=== PATIENT | female | born 1970 ===

== ENCOUNTER 2019-07-19 13:57 | Inpatient (IN) | payer MEDICAID, MEDICARE, OTHER ==
[2019-07-19] MEDS ORDERED: SODIUM CHLORIDE 0.9% 1000 ML IV SOLN IV ONE (14:52)
[2019-07-19] MEDS ORDERED: ACETAMINOPHEN 500 MG TAB PO ONE (14:53)
[2019-07-19] MEDS ORDERED: INSULIN REGULAR, HUMAN 100 UNITS/1 ML IV ONE (14:54)
[2019-07-19] MEDS ORDERED: PIPERACIL/TAZOBACTA 4.5/NS 100 4.5 GM/100 ML VIAL IV ONE (14:54)
--- NOTE | 2019-07-19 14:59 | Emergency Department Report ---
ED General Adult HPI - General Chief complaint: Hyperglycemia Stated complaint: AMS/BLOOD SUGAR Time Seen by Provider: 07/19/19 14:46 Source: EMS Mode of arrival: Stretcher Limitations: Physical Limitation - History of Present Illness Initial comments: Patient is a 48 years old female, morbidly obese with history of diabetes, hypertension ,pickwickian syndrome and obstructive sleep apnea on CPAP at night. Patient is bedridden. Patient brought to the emergency room via EMS for evaluation of cough, fever and elevated blood sugar. Patient has been at bedside and stated that she has been coughing for the last 3-4 days. - Related Data Allergies Allergy/AdvReac Type Severity Reaction Status Date / Time No Known Allergies Allergy Unverified 07/19/19 14:29 ED Review of Systems ROS: Stated complaint: AMS/BLOOD SUGAR Other details as noted in HPI Comment: All other systems reviewed and negative Constitutional: chills, fever Respiratory: cough, shortness of breath Gastrointestinal: denies: abdominal pain, nausea, vomiting, diarrhea, constipation, hematemesis, hematochezia Musculoskeletal: denies: back pain Neurological: denies: headache ED Past Medical Hx - Past Medical History Hx Hypertension: Yes Hx Diabetes: Yes Hx COPD: Yes - Social History Smoking Status: Never Smoker Substance Use Type: None ED Physical Exam - General Limitations: Physical Limitation General appearance: alert, in no apparent distress - Head Head exam: Present: atraumatic, normocephalic, normal inspection - Eye Eye exam: Present: normal appearance - ENT ENT exam: Present: normal exam, mucous membranes moist - Neck Neck exam: Present: normal inspection, full ROM. Absent: tenderness, meningismus - Respiratory Respiratory exam: Present: rales, rhonchi. Absent: stridor, decreased breath sounds, prolonged expiratory - Cardiovascular Cardiovascular Exam: Present: tachycardia - GI/Abdominal GI/Abdominal exam: Present: soft, normal bowel sounds. Absent: distended, tenderness, guarding, rebound, rigid - Extremities Exam Extremities exam: Present: normal inspection - Neurological Exam Neurological exam: Present: alert, oriented X3, CN II-XII intact - Skin Skin exam: Present: warm ED Course Vital Signs 07/19/19 07/19/19 07/19/19 14:20 14:25 15:01 Temperature 101.1 F H Pulse Rate 119 H 116 H Respiratory 18 21 Rate Blood Pressure 162/96 Blood Pressure 146/103 [Left] O2 Sat by Pulse 87 89 93 Oximetry 07/19/19 07/19/19 07/19/19 15:41 15:44 15:59 Temperature Pulse Rate Respiratory 18 18 20 Rate Blood Pressure Blood Pressure [Left] O2 Sat by Pulse 99 Oximetry 07/19/19 07/19/19 07/19/19 16:01 17:00 17:53 Temperature Pulse Rate 105 H Respiratory 27 H 19 18 Rate Blood Pressure 163/85 149/87 Blood Pressure [Left] O2 Sat by Pulse 94 94 Oximetry ED Medical Decision Making - Lab Data Result diagrams: 07/19/19 15:44 07/19/19 15:44 - EKG Data -: EKG Interpreted by Me - Radiology Data Radiology results: report reviewed - Medical Decision Making Patient is a 48 years old female, morbidly obese with history of diabetes, hypertension ,pickwickian syndrome and obstructive sleep apnea on CPAP at night. Patient is bedridden. Patient brought to the emergency room via EMS for evaluation of cough, fever and elevated blood sugar. Patient has been at bedside and stated that she has been coughing for the last 3-4 days. Patient's symptoms improved. Patient found to have a right lower lobe pneumonia and hyperglycemia. I discussed the patient with Dr. White, he agreed to admit the patient to medical service for further management. Critical Care Time: Yes Critical care time in (mins) excluding proc time.: 30 Critical care attestation.: If time is entered above; I have spent that time in minutes in the direct care of this critically ill patient, excluding procedure time. ED Disposition Clinical Impression: Right lower lobe pneumonia, Sepsis, Hyperglycemia due to type 2 diabetes mellitus Disposition: OP ADMIT IP TO THIS HOSP Is pt being admited?: Yes Condition: Stable Instructions: Bacterial Pneumonia (ED), Diabetes Mellitus Type 2 in Adults (ED) Referrals: PRIMARY CARE, [Primary Care Provider] - 3-5 Days
[2019-07-19] MEDS ORDERED: MORPHINE 2 MG/1 ML INJ ONE (15:32)
[2019-07-19] MEDS ORDERED: ONDANSETRON 4 MG/2 ML INJ ONE (15:33)
[2019-07-19] MEDS ORDERED: ONDANSETRON 4 MG/2 ML INJ IV ONE (15:42)
[2019-07-19] MEDS ORDERED: MORPHINE 4 MG/1 ML INJ IM ONE ×2 (15:42→17:34)
[2019-07-19 16:02] LABS: Basophils # (Auto) 0.1 K/mm3 (0.0-0.1); Basophils % (Auto) 0.5 % (0.0-1.8); Eosinophils # (Auto) 0.3 K/mm3 (0.0-0.4); Eosinophils % (Auto) 2.3 % (0.0-4.3); Hematocrit 36.3 % (30.3-42.9); Hemoglobin 11.8 gm/dl (10.1-14.3); Lymphocytes # (Auto) 0.5 K/mm3 (1.2-5.4); Lymphocytes % (Auto) 4.6 % (13.4-35.0); Mean Corpuscular HGB Conc 32 % (30-34); Mean Corpuscular Volume 85 fl (79-97); Monocytes # (Auto) 0.5 K/mm3 (0.0-0.8); Platelet Count 242 K/mm3 (140-440); Red Blood Count 4.27 M/mm3 (3.65-5.03); Red Cell Distribution Width 17.6 % (13.2-15.2)
[2019-07-19 16:25] LABS: Alanine Aminotransferase 11 units/L (7-56); Albumin 3.9 g/dL (3.9-5); BUN/Creatinine Ratio 19; Blood Urea Nitrogen 17 mg/dL (7-17); Calcium 8.1 mg/dL (8.4-10.2); Hemolysis Index 1
--- NOTE | 2019-07-19 16:29 | XRay Report ---
CHEST 1 VIEW INDICATION: cough, fever. COMPARISON: None. FINDINGS: Support devices: None. Heart: Enlarged. Pulmonary vasculature: Normal. Lungs/Pleura: Medial right basal lung opacification. No pleural effusion. Additional findings: None. IMPRESSION: Cardiomegaly but no CHF. Suspect right basal pneumonia. Signer Name: Rick Zepeda MD Signed: 07/19/2019 4:25 PM Workstation Name: [id number]
[2019-07-19] MEDS ORDERED: FUROSEMIDE 100 MG/10 ML INJ IV ONE (17:48)
[2019-07-19] MEDS ORDERED: NITROGLYCERIN 0.4 MG TAB SUBL SL ONE ×2 (17:48→17:53)
--- NOTE | 2019-07-19 19:35 | History and Physical Report ---
History of Present Illness Date of examination: 07/19/19 Date of admission: 07/19/2019 Chief complaint: Fever and diaphoresis 1 day History of present illness: 48-year-old female morbidly obese with history of diabetes and hypertension and obstructive sleep apnea on CPAP at night comes in via EMS for cough and fever and high blood glucose levels. Patient has been coughing for the last 3-4 days. Patient also has been having low-grade fever and frequent diaphoretic episodes. No recent travel. Patient is morbidly obese. No exacerbating or relieving factors. Blood glucose level was 572 when done by the EMS. Past Medical History Hypertension: Yes Diabetes: Yes Pickwickian syndrome Surgical history N/a Social History Smoking Status: Never Smoker Family history Htn Review of Systems ROS: Stated complaint: AMS/BLOOD SUGAR Other details as noted in HPI Comment: All other systems reviewed and negative Constitutional: chills, fever Respiratory: cough, shortness of breath Gastrointestinal: denies: abdominal pain, nausea, vomiting, diarrhea, constipation, hematemesis, hematochezia Musculoskeletal: denies: back pain Neurological: denies: headache 14 point review of systems done and otherwise negative. Medications and Allergies Allergies Allergy/AdvReac Type Severity Reaction Status Date / Time No Known Allergies Allergy Unverified 07/19/19 14:29 Exam - Constitutional Vitals: Temp Pulse Resp BP Pulse Ox 101.1 F H 105 H 18 149/87 94 07/19/19 14:25 07/19/19 16:01 07/19/19 17:53 07/19/19 17:00 07/19/19 17:00 General appearance: Present: no acute distress, well-nourished - EENT Eyes: Present: PERRL ENT: hearing intact, clear oral mucosa - Neck Neck: Present: supple, normal ROM - Respiratory Respiratory effort: normal Respiratory: bilateral: CTA - Cardiovascular Heart rate: 78 Rhythm: regular Heart Sounds: Present: S1 & S2. Absent: rub, click - Extremities Extremities: no ischemia, pulses intact, pulses symmetrical, No edema Peripheral Pulses: within normal limits - Abdominal General gastrointestinal: Present: soft, non-tender, non-distended, normal bowel sounds Female genitourinary: Present: normal - Rectal Rectal Exam: deferred - Integumentary Integumentary: Present: clear, warm, dry - Musculoskeletal Musculoskeletal: gait normal, strength equal bilaterally - Psychiatric Psychiatric: appropriate mood/affect, intact judgment & insight - Neurologic Neurologic: CNII-XII intact, moves all extremities - Allied Health Allied health notes reviewed: nursing, case management Results - Labs CBC & Chem 7: 07/19/19 15:44 07/19/19 15:44 Labs: Laboratory Last Values WBC 10.7 K/mm3 (4.5-11.0) 07/19/19 15:44 RBC 4.27 M/mm3 (3.65-5.03) 07/19/19 15:44 Hgb 11.8 gm/dl (10.1-14.3) 07/19/19 15:44 Hct 36.3 % (30.3-42.9) 07/19/19 15:44 MCV 85 fl (79-97) 07/19/19 15:44 MCH 28 pg (28-32) 07/19/19 15:44 MCHC 32 % (30-34) 07/19/19 15:44 RDW 17.6 % (13.2-15.2) H 07/19/19 15:44 Plt Count 242 K/mm3 (140-440) 07/19/19 15:44 Lymph % (Auto) 4.6 % (13.4-35.0) L 07/19/19 15:44 [place] % (Auto) 5.0 % (0.0-7.3) 07/19/19 15:44 Eos % (Auto) 2.3 % (0.0-4.3) 07/19/19 15:44 Baso % (Auto) 0.5 % (0.0-1.8) 07/19/19 15:44 Lymph # 0.5 K/mm3 (1.2-5.4) L 07/19/19 15:44 [place] # 0.5 K/mm3 (0.0-0.8) 07/19/19 15:44 Eos # 0.3 K/mm3 (0.0-0.4) 07/19/19 15:44 Baso # 0.1 K/mm3 (0.0-0.1) 07/19/19 15:44 Seg Neutrophils % 87.6 % (40.0-70.0) H 07/19/19 15:44 Seg Neutrophils # 9.4 K/mm3 (1.8-7.7) H 07/19/19 15:44 Sodium 137 mmol/L (137-145) 07/19/19 15:44 Potassium 4.5 mmol/L (3.6-5.0) 07/19/19 15:44 Chloride 92.2 mmol/L (98-107) L 07/19/19 15:44 Carbon Dioxide 27 mmol/L (22-30) 07/19/19 15:44 Anion Gap 22 mmol/L 07/19/19 15:44 BUN 17 mg/dL (7-17) 07/19/19 15:44 Creatinine 0.9 mg/dL (0.7-1.2) 07/19/19 15:44 Estimated GFR > 60 ml/min 07/19/19 15:44 BUN/Creatinine Ratio 19 % 07/19/19 15:44 Glucose 469 mg/dL (65-100) H 07/19/19 15:44 POC Glucose 361 (70-105) H 07/19/19 18:25 Lactic Acid 2.70 mmol/L (0.7-2.0) H* 07/19/19 16:30 Calcium 8.1 mg/dL (8.4-10.2) L 07/19/19 15:44 Total Bilirubin 0.20 mg/dL (0.1-1.2) 07/19/19 15:44 AST 10 units/L (5-40) 07/19/19 15:44 ALT 11 units/L (7-56) 07/19/19 15:44 Alkaline Phosphatase 95 units/L (35-129) 07/19/19 15:44 Total Protein 8.1 g/dL (6.3-8.2) 07/19/19 15:44 Albumin 3.9 g/dL (3.9-5) 07/19/19 15:44 Albumin/Globulin Ratio 0.9 % 07/19/19 15:44 Short CBC 07/19/19 Range/Units 15:44 WBC 10.7 (4.5-11.0) K/mm3 Hgb 11.8 (10.1-14.3) gm/dl Hct 36.3 (30.3-42.9) % Plt Count 242 (140-440) K/mm3 BMP 07/19/19 15:44 Sodium 137 Potassium 4.5 Chloride 92.2 L Carbon Dioxide 27 BUN 17 Creatinine 0.9 Glucose 469 H Calcium 8.1 L Liver Function 07/19/19 Range/Units 15:44 Total Bilirubin 0.20 (0.1-1.2) mg/dL AST 10 (5-40) units/L ALT 11 (7-56) units/L Alkaline Phosphatase 95 (35-129) units/L Albumin 3.9 (3.9-5) g/dL Short CBC 07/19/19 Range/Units 15:44 WBC 10.7 (4.5-11.0) K/mm3 Hgb 11.8 (10.1-14.3) gm/dl Hct 36.3 (30.3-42.9) % Plt Count 242 (140-440) K/mm3 [facility] 07/19/19 15:44 Sodium 137 Potassium 4.5 Chloride 92.2 L Carbon Dioxide 27 BUN 17 Creatinine 0.9 Glucose 469 H Calcium 8.1 L Liver Function 07/19/19 Range/Units 15:44 Total Bilirubin 0.20 (0.1-1.2) mg/dL AST 10 (5-40) units/L ALT 11 (7-56) units/L Alkaline Phosphatase 95 (35-129) units/L Albumin 3.9 (3.9-5) g/dL Short CBC 07/19/19 Range/Units 15:44 WBC 10.7 (4.5-11.0) K/mm3 Hgb 11.8 (10.1-14.3) gm/dl Hct 36.3 (30.3-42.9) % Plt Count 242 (140-440) K/mm3 [facility] 07/19/19 15:44 Sodium 137 Potassium 4.5 Chloride 92.2 L Carbon Dioxide 27 BUN 17 Creatinine 0.9 Glucose 469 H Calcium 8.1 L Liver Function 07/19/19 Range/Units 15:44 Total Bilirubin 0.20 (0.1-1.2) mg/dL AST 10 (5-40) units/L ALT 11 (7-56) units/L Alkaline Phosphatase 95 (35-129) units/L Albumin 3.9 (3.9-5) g/dL Short CBC 07/19/19 Range/Units 15:44 WBC 10.7 (4.5-11.0) K/mm3 Hgb 11.8 (10.1-14.3) gm/dl Hct 36.3 (30.3-42.9) % Plt Count 242 (140-440) K/mm3 BMP 07/19/19 15:44 Sodium 137 Potassium 4.5 Chloride 92.2 L Carbon Dioxide 27 BUN 17 Creatinine 0.9 Glucose 469 H Calcium 8.1 L Liver Function 07/19/19 Range/Units 15:44 Total Bilirubin 0.20 (0.1-1.2) mg/dL AST 10 (5-40) units/L ALT 11 (7-56) units/L Alkaline Phosphatase 95 (35-129) units/L Albumin 3.9 (3.9-5) g/dL - Imaging and Cardiology Chest x-ray: report reviewed Imaging and Cardiology: cxr IMPRESSION: Cardiomegaly but no CHF. Suspect right basal pneumonia and Assessment and Plan Advance Directives: Yes (Full code) VTE prophylaxis?: Chemical Plan of care discussed with patient/family: Yes - Patient Problems (1) Right lower lobe pneumonia Current Visit: Yes Status: Acute Plan to address problem: Patient initiated on IV ceftriaxone and IV azithromycin IV fluids (2) SIRS (systemic inflammatory response syndrome) Current Visit: Yes Status: Acute Plan to address problem: Patient has fever and elevated lactic acid Consistent with systemic inflammatory response syndrome Continue IV antibiotics (3) Acute respiratory failure with hypoxia Current Visit: Yes Status: Acute Plan to address problem: Secondary to pickwickian syndrome Nasal cannula oxygen as necessary (4) Pickwickian syndrome Current Visit: Yes Status: Chronic Plan to address problem: Chronic hypoventilation CPAP/BiPAP at nighttime and daytime if necessary (5) Uncontrolled diabetes mellitus Current Visit: Yes Status: Chronic Qualifiers: Diabetes mellitus type: type 2 Plan to address problem: Patient is a sliding scale at home which is inadequate Check hemoglobin A1c Lantus 30 units daily at bedtime initiated Accu-Cheks every 4 hours and moderate dose sliding scale protocol. (6) Hypertension Current Visit: Yes Status: Chronic Qualifiers: Hypertension type: essential hypertension Qualified Code(s): I10 - Essential (primary) hypertension Plan to address problem: Continue losartan (7) DVT prophylaxis Current Visit: Yes Status: Acute Plan to address problem: Patient on Lovenox and GI prophylaxis
[2019-07-19] MEDS ORDERED: ACETAMINOPHEN 325 MG TAB PO PRN (20:09)
[2019-07-19] MEDS ORDERED: ONDANSETRON 4 MG/2 ML INJ IV PRN (20:09)
[2019-07-19] MEDS ORDERED: oxyCODONE /ACETAMINOPHEN 5-325MG TAB PO PRN (20:10)
[2019-07-19] MEDS ORDERED: ALBUTEROL 2.5 MG/3 ML NEBU IH PRN (20:30)
[2019-07-19] MEDS ORDERED: SODIUM CHLORIDE 0.9% 1000 ML 1,000 ML IV SCH (21:00)
[2019-07-19] MEDS: ENOXAPARIN 40 MG/0.4 ML INJ SUB-Q SCH (22:52)
[2019-07-19] MEDS: LOSARTAN 50 MG TAB PO SCH (22:53)
[2019-07-19] MEDS: AZITHROMYCIN 500 MG in SODIUM CHLORIDE 0.9% 250ML 250 ML IV SCH (22:54)
[2019-07-19] MEDS: HYDROmorphone 1 MG/1 ML INJ IV PRN (22:54)
[2019-07-19] MEDS: INSULIN GLARGINE 100 UNITS/ML SUB-Q SCH (23:31)
[2019-07-19] MEDS: INSULIN LISPRO 100 UNIT/ML SUB-Q SCH (23:32)
[2019-07-20] MEDS: cefTRIAXone/NS 2 GM/100 ML 2 GM/100 ML BAG IV SCH ×2 (00:01→21:52)
[2019-07-20] MEDS: INSULIN LISPRO 100 UNIT/ML SUB-Q SCH ×6 (03:38→21:52)
[2019-07-20] MEDS: HYDROmorphone 1 MG/1 ML INJ IV PRN ×4 (03:39→22:29)
[2019-07-20 06:48] LABS: Basophils % (Auto) 0.5 % (0.0-1.8); Eosinophils # (Auto) 0.4 K/mm3 (0.0-0.4); Eosinophils % (Auto) 5.3 % (0.0-4.3); Hematocrit 32.8 % (30.3-42.9); Hemoglobin 10.4 gm/dl (10.1-14.3); Lymphocytes # (Auto) 0.9 K/mm3 (1.2-5.4); Lymphocytes % (Auto) 13.1 % (13.4-35.0); Mean Corpuscular HGB Conc 32 % (30-34); Mean Corpuscular Volume 86 fl (79-97); Monocytes # (Auto) 0.6 K/mm3 (0.0-0.8); Platelet Count 228 K/mm3 (140-440); Red Cell Distribution Width 17.2 % (13.2-15.2)
--- NOTE | 2019-07-20 07:05 | Progress Note ---
Assessment and Plan Assessment and plan: Patient is a 48 yo woman with a history of morbidly obese as BMI at this time is 60.8, type 2 DM, hypertension and obstructive sleep apnea on CPAP at night who presents to [facility] ED with sob, cough and fevers. Blood glucose level was 572 when done by the EMS. pCXR showed Cardiomegaly and Right basilar pneumonia. Patient was hypoxic with Pulse ox of 87% on ER vital set, hence admission. She was also found to have excoriation, yeast type infection in perineal with stage 2 sacral pressure ulcers (see admission photos). Acute hypoxic respiratory failure requring O2 supplementation: treat the pneumonia Sepsis due to Pneumonia, poa: follow cultures, treat with abx RLL CAP pneumonia: treat with abx Morbid Obesity, bmi 60.8: monitor caloric intake Uncontrolled DM type 2 with hyperglycemia: treat with ssi, accuchecks, ada diet Sacral pressure ulcers stage 2: wound care consult Perineal Candiadiasis: keep dry and treat with local antifungal Suspected Pickwickian syndrome/ Chronic hypoventilation: CPAP/BiPAP at nighttime and daytime if necessary Hypertension: Continue losartan DVT prophylaxis: Patient on Lovenox and GI prophylaxis full code Hospitalist Physical - Constitutional Vitals: Temp Pulse Resp BP Pulse Ox 98.0 F 88 18 153/84 92 07/20/19 03:52 07/20/19 04:19 07/20/19 03:52 07/20/19 03:52 07/20/19 03:52 General appearance: Present: no acute distress, well-nourished Results - Labs CBC & Chem 7: 07/20/19 05:33 07/19/19 15:44 Labs: Laboratory Last Values WBC 7.0 K/mm3 (4.5-11.0) 07/20/19 05:33 RBC 3.80 M/mm3 (3.65-5.03) 07/20/19 05:33 Hgb 10.4 gm/dl (10.1-14.3) 07/20/19 05:33 Hct 32.8 % (30.3-42.9) 07/20/19 05:33 MCV 86 fl (79-97) 07/20/19 05:33 MCH 27 pg (28-32) L 07/20/19 05:33 MCHC 32 % (30-34) 07/20/19 05:33 RDW 17.2 % (13.2-15.2) H 07/20/19 05:33 Plt Count 228 K/mm3 (140-440) 07/20/19 05:33 Lymph % (Auto) 13.1 % (13.4-35.0) L 07/20/19 05:33 [place] % (Auto) 9.0 % (0.0-7.3) H 07/20/19 05:33 Eos % (Auto) 5.3 % (0.0-4.3) H 07/20/19 05:33 Baso % (Auto) 0.5 % (0.0-1.8) 07/20/19 05:33 Lymph # 0.9 K/mm3 (1.2-5.4) L 07/20/19 05:33 [place] # 0.6 K/mm3 (0.0-0.8) 07/20/19 05:33 Eos # 0.4 K/mm3 (0.0-0.4) 07/20/19 05:33 Baso # 0.0 K/mm3 (0.0-0.1) 07/20/19 05:33 Seg Neutrophils % 72.1 % (40.0-70.0) H 07/20/19 05:33 Seg Neutrophils # 5.0 K/mm3 (1.8-7.7) 07/20/19 05:33 Sodium 137 mmol/L (137-145) 07/19/19 15:44 Potassium 4.5 mmol/L (3.6-5.0) 07/19/19 15:44 Chloride 92.2 mmol/L (98-107) L 07/19/19 15:44 Carbon Dioxide 27 mmol/L (22-30) 07/19/19 15:44 Anion Gap 22 mmol/L 07/19/19 15:44 BUN 17 mg/dL (7-17) 07/19/19 15:44 Creatinine 0.9 mg/dL (0.7-1.2) 07/19/19 15:44 Estimated GFR > 60 ml/min 07/19/19 15:44 BUN/Creatinine Ratio 19 % 07/19/19 15:44 Glucose 469 mg/dL (65-100) H 07/19/19 15:44 POC Glucose 245 (70-105) H 07/20/19 06:07 Hemoglobin A1c 12.1 % (4-6) H 07/19/19 15:44 Lactic Acid 1.90 mmol/L (0.7-2.0) 07/19/19 23:32 Calcium 8.1 mg/dL (8.4-10.2) L 07/19/19 15:44 Total Bilirubin 0.20 mg/dL (0.1-1.2) 07/19/19 15:44 AST 10 units/L (5-40) 07/19/19 15:44 ALT 11 units/L (7-56) 07/19/19 15:44 Alkaline Phosphatase 95 units/L (35-129) 07/19/19 15:44 Total Protein 8.1 g/dL (6.3-8.2) 07/19/19 15:44 Albumin 3.9 g/dL (3.9-5) 07/19/19 15:44 Albumin/Globulin Ratio 0.9 % 07/19/19 15:44 Active Medications - Current Medications Current Medications: Generic Name Dose Route Start Last Admin Trade Name Freq PRN Reason Stop Dose Admin Acetaminophen 650 mg 07/19/19 20:09 Tylenol PO Q4H PRN Pain MILD(1-3)/Fever >100.5/LOPEZ Albuterol 2.5 mg 07/19/19 20:30 Proventil IH Q4HRT PRN Shortness Of Breath Albuterol/Ipratropium 1 ampul 07/20/19 08:00 Duoneb *Not For Prn Use* IH QIDRT MARGARITA Enoxaparin Sodium 40 mg 07/19/19 22:00 07/19/19 22:52 Enoxaparin SUB-Q 40 mg QDAY@2200 MARGARITA Administration Hydromorphone HCl 0.5 mg 07/19/19 20:10 07/20/19 03:39 Dilaudid IV 0.5 mg Q3H PRN Administration Pain , Severe (7-10) Sodium Chloride 1,000 mls @ 75 mls/hr 07/19/19 21:00 07/19/19 22:52 Nacl 0.9% 1000 Ml IV 07/20/19 11:00 75 mls/hr DIRECT MARGARITA Administration Azithromycin 500 mg/ Sodium 250 mls @ 250 mls/hr 07/19/19 21:00 07/19/19 22:54 Chloride IV 250 mls/hr Q24H MARGARITA Administration Protocol Ceftriaxone Sodium 2 gm in 100 mls @ 200 mls/hr 07/19/19 22:00 07/20/19 00:01 Rocephin/Ns 2 Gm/100 Ml IV 200 mls/hr Q24H MARGARITA Administration Protocol Insulin Glargine 30 units 07/19/19 22:00 07/19/19 23:31 Lantus SUB-Q 30 units QHS MARGARITA Administration Insulin Human Lispro 0 unit 07/19/19 22:00 07/20/19 06:37 Humalog SUB-Q 3 unit Q4HR MARGARITA Administration Protocol Losartan Potassium 50 mg 07/19/19 22:00 07/19/19 22:53 Cozaar PO 50 mg QDAY MARGARITA Administration Ondansetron HCl 4 mg 07/19/19 20:09 Zofran IV Q8H PRN Nausea And Vomiting Oxycodone/Acetaminophen 1 tab 07/19/19 20:10 Percocet 5/325 PO Q6H PRN Pain, Moderate (4-6) Sodium Chloride 10 ml 07/19/19 22:00 07/19/19 22:55 Sodium Chloride Flush Syringe 10 Ml IV 10 ml BID MARGARITA Administration Sodium Chloride 10 ml 07/19/19 20:09 Sodium Chloride Flush Syringe 10 Ml IV PRN PRN LINE FLUSH
[2019-07-20 07:11] LABS: Alanine Aminotransferase 10 units/L (7-56); Albumin 3.5 g/dL (3.9-5); BUN/Creatinine Ratio 18; Blood Urea Nitrogen 14 mg/dL (7-17); Calcium 7.4 mg/dL (8.4-10.2); Hemolysis Index 0
[2019-07-20] MEDS ORDERED: IPRATROPIUM/ALBUTEROL SULFATE 3 ML AMPUL.NEB IH SCH (08:00)
[2019-07-20] MEDS: LOSARTAN 50 MG TAB PO SCH (09:22)
[2019-07-20] MEDS ORDERED: ALBUTEROL 2.5 MG/3 ML NEBU IH PRN (09:46)
[2019-07-20] MEDS: IPRATROPIUM/ALBUTEROL SULFATE 3 ML AMPUL.NEB IH SCH ×2 (13:13→20:07)
--- NOTE | 2019-07-20 14:08 | Event Note ---
Date: 07/20/19 Went to go evaluate patient. She refuses to wear the CPAP even though during my attempt at interview she is dosing off to sleep. She cannot tell me who diagnosed her with SCARLET, or how long she has been on CPAP. She cannot tell me why she is suppose to wear CPAP nor why she does not wear it everyday. She does state that her Courseload is [employer]. Called the office and she was seen by Terrell on 07/02 with diagnosis of chronic respiratory failure and SCARLET. She did not bring in her sleep card with her. She has no white count but was febrile on admission. Suggest the following. 1. Continuous CPAP vs Bipap therapy. Will speak with RT now 2. Send BNP 3. Needs echo to evaluate for pulmonary hypertension 4. Supplemental O2 5. Follow up blood cultures and ok with current abx. If possible, needs UA C&S
[2019-07-20] MEDS: guaiFENesin/CODEINE 100-10MG ORAL LIQD 5 ML PO PRN (18:23)
[2019-07-20] MEDS: BUDESONIDE 0.5 MG/2 ML NEBU IH SCH (20:07)
[2019-07-20] MEDS: ARFORMOTEROL 15 MCG/2 ML NEBU IH SCH (20:07)
[2019-07-20] MEDS: AZITHROMYCIN 500 MG in SODIUM CHLORIDE 0.9% 250ML 250 ML IV SCH (21:42)
[2019-07-20] MEDS: BENZONATATE 100 MG CAP PO SCH (21:43)
[2019-07-20] MEDS: ENOXAPARIN 40 MG/0.4 ML INJ SUB-Q SCH (21:44)
[2019-07-20] MEDS: INSULIN GLARGINE 100 UNITS/ML SUB-Q SCH (21:44)
[2019-07-21] MEDS: IPRATROPIUM/ALBUTEROL SULFATE 3 ML AMPUL.NEB IH SCH ×4 (02:00→19:33)
[2019-07-21] MEDS: INSULIN LISPRO 100 UNIT/ML SUB-Q SCH ×6 (02:55→22:28)
[2019-07-21] MEDS: HYDROmorphone 1 MG/1 ML INJ IV PRN ×5 (04:11→22:28)
[2019-07-21] MEDS: BENZONATATE 100 MG CAP PO SCH ×3 (06:37→21:11)
[2019-07-21] MEDS: LOSARTAN 50 MG TAB PO SCH (09:08)
--- NOTE | 2019-07-21 09:54 | Progress Note ---
Assessment and Plan 48 y/o morbidly obese female with SCARLET, OHS and noncompliance with therapy and chronic respiratory failure. Subjective Date of service: 07/21/19 Interval history: patient refused PPV last night x3. Well documented by RT. BNP elevated at 500. Objective Vital Signs - 12hr 07/20/19 07/21/19 07/21/19 23:51 02:00 04:00 Temperature 98.8 F Pulse Rate 84 81 Pulse Rate [ 85 Bilateral Throughout] Respiratory 22 Rate Respiratory 20 Rate [Bilateral Throughout] Blood Pressure 149/74 O2 Sat by Pulse 90 Oximetry 07/21/19 07/21/19 04:45 09:08 Temperature 97.4 F L Pulse Rate 82 82 Pulse Rate [ Bilateral Throughout] Respiratory 20 Rate Respiratory Rate [Bilateral Throughout] Blood Pressure 149/93 137/84 O2 Sat by Pulse 93 Oximetry CBC and BMP: 07/20/19 05:33 07/20/19 05:33 Abnormal lab findings: Abnormal Labs 07/19/19 07/19/19 07/19/19 15:44 15:44 15:44 MCH RDW 17.6 H Lymph % (Auto) 4.6 L [place] % (Auto) Eos % (Auto) Lymph # 0.5 L Seg Neutrophils % 87.6 H Seg Neutrophils # 9.4 H Chloride 92.2 L Carbon Dioxide Glucose 469 H POC Glucose Hemoglobin A1c Lactic Acid 2.70 H* Calcium 8.1 L NT-Pro-B Natriuret Pep Albumin 07/19/19 07/19/19 07/19/19 15:44 16:30 18:25 MCH RDW Lymph % (Auto) [place] % (Auto) Eos % (Auto) Lymph # Seg Neutrophils % Seg Neutrophils # Chloride Carbon Dioxide Glucose POC Glucose 361 H Hemoglobin A1c 12.1 H Lactic Acid 2.70 H* Calcium NT-Pro-B Natriuret Pep Albumin 07/19/19 07/20/19 07/20/19 23:15 03:41 05:33 MCH 27 L RDW 17.2 H Lymph % (Auto) 13.1 L [place] % (Auto) 9.0 H Eos % (Auto) 5.3 H Lymph # 0.9 L Seg Neutrophils % 72.1 H Seg Neutrophils # Chloride Carbon Dioxide Glucose POC Glucose 386 H 254 H Hemoglobin A1c Lactic Acid Calcium NT-Pro-B Natriuret Pep Albumin 10/07/20/19 07/20/19 05:33 06:07 11:19 MCH RDW Lymph % (Auto) [place] % (Auto) Eos % (Auto) Lymph # Seg Neutrophils % Seg Neutrophils # Chloride Carbon Dioxide 31 H Glucose 257 H POC Glucose 245 H 302 H Hemoglobin A1c Lactic Acid Calcium 7.4 L NT-Pro-B Natriuret Pep Albumin 3.5 L 07/20/19 07/20/19 07/20/19 14:17 15:45 17:47 MCH RDW Lymph % (Auto) [place] % (Auto) Eos % (Auto) Lymph # Seg Neutrophils % Seg Neutrophils # Chloride Carbon Dioxide Glucose POC Glucose 287 H 341 H Hemoglobin A1c Lactic Acid Calcium NT-Pro-B Natriuret Pep 499.5 H Albumin 07/20/19 07/21/19 07/21/19 21:05 02:59 06:39 MCH RDW Lymph % (Auto) [place] % (Auto) Eos % (Auto) Lymph # Seg Neutrophils % Seg Neutrophils # Chloride Carbon Dioxide Glucose POC Glucose 347 H 231 H 198 H Hemoglobin A1c Lactic Acid Calcium NT-Pro-B Natriuret Pep Albumin
[2019-07-21] MEDS: ARFORMOTEROL 15 MCG/2 ML NEBU IH SCH ×2 (10:32→19:33)
[2019-07-21] MEDS: BUDESONIDE 0.5 MG/2 ML NEBU IH SCH ×2 (10:32→19:33)
--- NOTE | 2019-07-21 14:59 | Progress Note ---
Assessment and Plan Assessment and plan: Patient is a 48 yo woman with a history of morbidly obese as BMI at this time is 60.8, type 2 DM, hypertension and obstructive sleep apnea on CPAP at night who presents to [facility] ED with sob, cough and fevers. Blood glucose level was 572 when done by the EMS. pCXR showed Cardiomegaly and Right basilar pneumonia. Patient was hypoxic with Pulse ox of 87% on ER vital set, hence admission. She was also found to have excoriation, yeast type infection in perineal with stage 2 sacral pressure ulcers (see admission photos). Acute hypoxic hypercapneic respiratory failure requring O2 supplementation: treat the pneumonia Sepsis due to Pneumonia, poa: follow cultures, treat with abx RLL CAP pneumonia: treat with abx Morbid Obesity, bmi 60.8: monitor caloric intake Uncontrolled DM type 2 with hyperglycemia: treat with ssi, accuchecks, ada diet Sacral pressure ulcers stage 2: wound care consult Perineal Candiadiasis: keep dry and treat with local antifungal Suspected Pickwickian syndrome/ Chronic hypoventilation: CPAP/BiPAP at nighttime and daytime if necessary Hypertension: Continue losartan DVT prophylaxis: Patient on Lovenox and GI prophylaxis full code History Interval history: Follow up COPD. Non compliant with wearing bipap at night, still hypercapneic, unable to treat effectively if she will not wear bipap, she will tonight Hospitalist Physical - Physical exam Narrative exam: Gen: morbid obese bmi 60.7 NAD, Awake, Alert, Orientated HEENT: NCAT, EOMI, PERRL, OP Clear Neck: supple, no adenopathy, no thyromegaly, no JVD CVS/Heart: RRR, normal S1S2, pulses present bilaterally Chest/Lungs: diminished with rhonchi, Symmetrical chest expansion, good air entry bilaterally GI/Abdomen: soft, NTND, good bowel sounds, no guarding or rebound /Bladder: no suprapubic tenderness, no CVA or paraspinal tenderness Extermity/Skin: obvious rashes, inner thigh, groin, buttock MSK: FROM x 4 Neuro: CN 2-12 grossly intact, no new focal deficits Psych: calm - Constitutional Vitals: Temp Pulse Resp BP Pulse Ox 97.4 F L 82 18 137/84 93 07/21/19 04:45 07/21/19 13:51 07/21/19 13:51 07/21/19 09:08 07/21/19 10:00 General appearance: Present: no acute distress, well-nourished Results - Labs CBC & Chem 7: 07/20/19 05:33 07/20/19 05:33 Labs: Laboratory Last Values WBC 7.0 K/mm3 (4.5-11.0) 07/20/19 05:33 RBC 3.80 M/mm3 (3.65-5.03) 07/20/19 05:33 Hgb 10.4 gm/dl (10.1-14.3) 07/20/19 05:33 Hct 32.8 % (30.3-42.9) 07/20/19 05:33 MCV 86 fl (79-97) 07/20/19 05:33 MCH 27 pg (28-32) L 07/20/19 05:33 MCHC 32 % (30-34) 07/20/19 05:33 RDW 17.2 % (13.2-15.2) H 07/20/19 05:33 Plt Count 228 K/mm3 (140-440) 07/20/19 05:33 Lymph % (Auto) 13.1 % (13.4-35.0) L 07/20/19 05:33 [place] % (Auto) 9.0 % (0.0-7.3) H 07/20/19 05:33 Eos % (Auto) 5.3 % (0.0-4.3) H 07/20/19 05:33 Baso % (Auto) 0.5 % (0.0-1.8) 07/20/19 05:33 Lymph # 0.9 K/mm3 (1.2-5.4) L 07/20/19 05:33 [place] # 0.6 K/mm3 (0.0-0.8) 07/20/19 05:33 Eos # 0.4 K/mm3 (0.0-0.4) 07/20/19 05:33 Baso # 0.0 K/mm3 (0.0-0.1) 07/20/19 05:33 Seg Neutrophils % 72.1 % (40.0-70.0) H 07/20/19 05:33 Seg Neutrophils # 5.0 K/mm3 (1.8-7.7) 07/20/19 05:33 Sodium 141 mmol/L (137-145) 07/20/19 05:33 Potassium 4.1 mmol/L (3.6-5.0) 07/20/19 05:33 Chloride 99.2 mmol/L (98-107) 07/20/19 05:33 Carbon Dioxide 31 mmol/L (22-30) H 07/20/19 05:33 Anion Gap 15 mmol/L 07/20/19 05:33 BUN 14 mg/dL (7-17) 07/20/19 05:33 Creatinine 0.8 mg/dL (0.7-1.2) 07/20/19 05:33 Estimated GFR > 60 ml/min 07/20/19 05:33 BUN/Creatinine Ratio 18 % 07/20/19 05:33 Glucose 257 mg/dL (65-100) H 07/20/19 05:33 POC Glucose 314 (70-105) H 07/21/19 10:35 Hemoglobin A1c 12.1 % (4-6) H 07/19/19 15:44 Lactic Acid 1.90 mmol/L (0.7-2.0) 07/19/19 23:32 Calcium 7.4 mg/dL (8.4-10.2) L 07/20/19 05:33 Total Bilirubin 0.20 mg/dL (0.1-1.2) 07/20/19 05:33 AST 11 units/L (5-40) 07/20/19 05:33 ALT 10 units/L (7-56) 07/20/19 05:33 Alkaline Phosphatase 79 units/L (35-129) 07/20/19 05:33 NT-Pro-B Natriuret Pep 499.5 pg/mL (0-450) H 07/20/19 15:45 Total Protein 7.1 g/dL (6.3-8.2) 07/20/19 05:33 Albumin 3.5 g/dL (3.9-5) L 07/20/19 05:33 Albumin/Globulin Ratio 1.0 % 07/20/19 05:33 Active Medications - Current Medications Current Medications: Generic Name Dose Route Start Last Admin Trade Name Freq PRN Reason Stop Dose Admin Acetaminophen 650 mg 07/19/19 20:09 Tylenol PO Q4H PRN Pain MILD(1-3)/Fever >100.5/LOPEZ Albuterol 2.5 mg 07/20/19 09:46 Proventil IH Q4HRT PRN Shortness Of Breath Albuterol/Ipratropium 1 ampul 07/20/19 14:00 07/21/19 13:51 Duoneb *Not For Prn Use* IH 1 ampul Q6HRT MARGARITA Administration Arformoterol Tartrate 15 mcg 07/20/19 20:00 07/21/19 10:32 Brovana Nebu IH 15 mcg Q12HRT MARGARITA Administration Benzonatate 100 mg 07/20/19 22:00 07/21/19 13:17 Tessalon Perles PO 100 mg Q8HR MARGARITA Administration Budesonide 0.5 mg 07/20/19 20:00 07/21/19 10:32 Pulmicort IH 0.5 mg Q12HRT MARGARITA Administration Enoxaparin Sodium 40 mg 07/19/19 22:00 07/20/19 21:44 Enoxaparin SUB-Q 40 mg QDAY@2200 MARGARITA Administration Hydromorphone HCl 0.5 mg 07/19/19 20:10 07/21/19 13:52 Dilaudid IV 0.5 mg Q3H PRN Administration Pain , Severe (7-10) Azithromycin 500 mg/ Sodium 250 mls @ 250 mls/hr 07/19/19 21:00 07/20/19 21:42 Chloride IV 250 mls/hr Q24H MARGARITA Administration Protocol Ceftriaxone Sodium 2 gm in 100 mls @ 200 mls/hr 07/19/19 22:00 07/20/19 21:52 Rocephin/Ns 2 Gm/100 Ml IV 200 mls/hr Q24H MARGARITA Administration Protocol Insulin Glargine 30 units 07/19/19 22:00 07/20/19 21:44 Lantus SUB-Q 30 units QHS MARGARITA Administration Insulin Human Lispro 0 unit 07/19/19 22:00 07/21/19 13:55 Humalog SUB-Q 6 unit Q4HR MARGARITA Administration Protocol Losartan Potassium 50 mg 07/19/19 22:00 07/21/19 09:08 Cozaar PO 50 mg QDAY MARGARITA Administration Ondansetron HCl 4 mg 07/19/19 20:09 Zofran IV Q8H PRN Nausea And Vomiting Oxycodone/Acetaminophen 1 tab 07/19/19 20:10 Percocet 5/325 PO Q6H PRN Pain, Moderate (4-6) Pseudoephedrine/Acetam/Chlorphenir 10 ml 07/20/19 18:08 07/20/19 18:23 Robitussin Ac PO 10 ml Q4H PRN Administration Cough Sodium Chloride 10 ml 07/19/19 22:00 07/21/19 09:10 Sodium Chloride Flush Syringe 10 Ml IV 10 ml BID MARGARITA Administration Sodium Chloride 10 ml 07/19/19 20:09 Sodium Chloride Flush Syringe 10 Ml IV PRN PRN LINE FLUSH Nutrition/Malnutrition Assess - Dietary Evaluation Nutrition/Malnutrition Findings: Nutrition Notes Start: 07/20/19 13:19 Freq: Status: Active Protocol: Document 07/20/19 13:19 RM (Rec: 07/20/19 13:40 RM [id number]) Nutrition Notes Need for Assessment generated from: MD Order Initial or Follow up Assessment Current Diagnosis Diabetes,Hypertension, Respiratory Failure Other Pertinent Diagnosis R lower lobe pneu, SIRS, Stage 2 Sacral PUs, Pickwickian syndrome Current Diet Cardiac/Consistent CHO Labs/Tests A1c 12.1 Pertinent Medications Reviewed Height 5 ft 2 in Weight 150.8 kg [place] Body Weight (kg) 50.00 BMI 60.7 Subjective/Other Information Consulted for DM diet education and screened for skin risk. Aquiles 9 points. Pt stated that her appetite is okay and that she eats all of her meals . Declined Yevgeniy d/t disliking the taste. Denied N/V. Pt stated that she had been previously educated but was not taught Carbohydrate Counting. Pt was falling asleep during beginning of education and requested education be rescheduled. Percent of energy/protein needs met: 100%/100% Burn Absent Trauma Absent Minimum of two criteria No #1 Nutrition Diagnosis Food and nutrition-related knowledge deficit Etiology previous inadequate diet education As Evidenced by Signs and Symptoms pt desire for education, A1c 12.1 Is patient on ventilator? No Is Patient Ambulatory and/or Out of Bed No REE-([facility]-confined to bed) 2506.392 Kcal/Kg value to use for calculation 13 Approximate Energy Requirements Using 1960 kcal/Kg Calculation Used for Recommendations Kcal/kg Additional Notes Protein Needs: 60-75g (1.2-1. 5g/kg IBW) Fluid Needs: 1 ml/kcal Nutrition Intervention Follow-Up By: 07/23/19 Additional Comments Follow for DM diet education
[2019-07-21] MEDS: guaiFENesin/CODEINE 100-10MG ORAL LIQD 5 ML PO PRN ×2 (16:01→21:01)
[2019-07-21] MEDS: AZITHROMYCIN 500 MG in SODIUM CHLORIDE 0.9% 250ML 250 ML IV SCH (21:02)
[2019-07-21] MEDS: ENOXAPARIN 40 MG/0.4 ML INJ SUB-Q SCH (21:11)
[2019-07-21] MEDS: INSULIN GLARGINE 100 UNITS/ML SUB-Q SCH (22:27)
[2019-07-21] MEDS: cefTRIAXone/NS 2 GM/100 ML 2 GM/100 ML BAG IV SCH (22:30)
[2019-07-22] MEDS: IPRATROPIUM/ALBUTEROL SULFATE 3 ML AMPUL.NEB IH SCH ×4 (01:41→20:42)
[2019-07-22] MEDS: HYDROmorphone 1 MG/1 ML INJ IV PRN ×6 (01:41→23:58)
[2019-07-22] MEDS: INSULIN LISPRO 100 UNIT/ML SUB-Q SCH ×6 (02:45→21:51)
--- NOTE | 2019-07-22 06:14 | Progress Note ---
Assessment and Plan Assessment and plan: Patient is a 48 yo woman with a history of morbidly obese as BMI at this time is 60.8, type 2 DM, hypertension and obstructive sleep apnea on CPAP at night who presents to [facility] ED with sob, cough and fevers. Blood glucose level was 572 when done by the EMS. pCXR showed Cardiomegaly and Right basilar pneumonia. Patient was hypoxic with Pulse ox of 87% on ER vital set, hence admission. She was also found to have excoriation, yeast type infection in perineal with stage 2 sacral pressure ulcers (see admission photos). Acute hypoxic hypercapneic respiratory failure requring O2 supplementation: treat the pneumonia Sepsis due to Pneumonia, poa: follow cultures, treat with abx RLL CAP pneumonia: treat with abx Morbid Obesity, bmi 60.8: monitor caloric intake Uncontrolled DM type 2 with hyperglycemia: treat with ssi, accuchecks, ada diet Sacral pressure ulcers stage 2: wound care consult Perineal Candiadiasis: keep dry and treat with local antifungal Suspected Pickwickian syndrome/ Chronic hypoventilation: CPAP/BiPAP at nighttime and daytime if necessary Hypertension: Continue losartan DVT prophylaxis: Patient on Lovenox and GI prophylaxis full code History Interval history: Follow up COPD. Non compliant with wearing bipap at night, still hypercapneic, unable to treat effectively if she will not wear bipap, she will tonight Hospitalist Physical - Physical exam Narrative exam: Gen: morbid obese bmi 60.7 NAD, Awake, Alert, Orientated HEENT: NCAT, EOMI, PERRL, OP Clear Neck: supple, no adenopathy, no thyromegaly, no JVD CVS/Heart: RRR, normal S1S2, pulses present bilaterally Chest/Lungs: diminished with rhonchi, Symmetrical chest expansion, good air entry bilaterally GI/Abdomen: soft, NTND, good bowel sounds, no guarding or rebound /Bladder: no suprapubic tenderness, no CVA or paraspinal tenderness Extermity/Skin: obvious rashes, inner thigh, groin, buttock MSK: FROM x 4 Neuro: CN 2-12 grossly intact, no new focal deficits Psych: calm - Constitutional Vitals: Temp Pulse Resp BP Pulse Ox 98.1 F 82 20 152/82 81 L 07/22/19 04:33 07/22/19 04:32 07/22/19 04:32 07/22/19 04:32 07/22/19 04:32 General appearance: Present: no acute distress, well-nourished Results - Labs CBC & Chem 7: 07/20/19 05:33 07/20/19 05:33 Labs: Laboratory Last Values WBC 7.0 K/mm3 (4.5-11.0) 07/20/19 05:33 RBC 3.80 M/mm3 (3.65-5.03) 07/20/19 05:33 Hgb 10.4 gm/dl (10.1-14.3) 07/20/19 05:33 Hct 32.8 % (30.3-42.9) 07/20/19 05:33 MCV 86 fl (79-97) 07/20/19 05:33 MCH 27 pg (28-32) L 07/20/19 05:33 MCHC 32 % (30-34) 07/20/19 05:33 RDW 17.2 % (13.2-15.2) H 07/20/19 05:33 Plt Count 228 K/mm3 (140-440) 07/20/19 05:33 Lymph % (Auto) 13.1 % (13.4-35.0) L 07/20/19 05:33 [place] % (Auto) 9.0 % (0.0-7.3) H 07/20/19 05:33 Eos % (Auto) 5.3 % (0.0-4.3) H 07/20/19 05:33 Baso % (Auto) 0.5 % (0.0-1.8) 07/20/19 05:33 Lymph # 0.9 K/mm3 (1.2-5.4) L 07/20/19 05:33 [place] # 0.6 K/mm3 (0.0-0.8) 07/20/19 05:33 Eos # 0.4 K/mm3 (0.0-0.4) 07/20/19 05:33 Baso # 0.0 K/mm3 (0.0-0.1) 07/20/19 05:33 Seg Neutrophils % 72.1 % (40.0-70.0) H 07/20/19 05:33 Seg Neutrophils # 5.0 K/mm3 (1.8-7.7) 07/20/19 05:33 Sodium 141 mmol/L (137-145) 07/20/19 05:33 Potassium 4.1 mmol/L (3.6-5.0) 07/20/19 05:33 Chloride 99.2 mmol/L (98-107) 07/20/19 05:33 Carbon Dioxide 31 mmol/L (22-30) H 07/20/19 05:33 Anion Gap 15 mmol/L 07/20/19 05:33 BUN 14 mg/dL (7-17) 07/20/19 05:33 Creatinine 0.8 mg/dL (0.7-1.2) 07/20/19 05:33 Estimated GFR > 60 ml/min 07/20/19 05:33 BUN/Creatinine Ratio 18 % 07/20/19 05:33 Glucose 257 mg/dL (65-100) H 07/20/19 05:33 POC Glucose 264 (70-105) H 07/22/19 02:50 Hemoglobin A1c 12.1 % (4-6) H 07/19/19 15:44 Lactic Acid 1.90 mmol/L (0.7-2.0) 07/19/19 23:32 Calcium 7.4 mg/dL (8.4-10.2) L 07/20/19 05:33 Total Bilirubin 0.20 mg/dL (0.1-1.2) 07/20/19 05:33 AST 11 units/L (5-40) 07/20/19 05:33 ALT 10 units/L (7-56) 07/20/19 05:33 Alkaline Phosphatase 79 units/L (35-129) 07/20/19 05:33 NT-Pro-B Natriuret Pep 499.5 pg/mL (0-450) H 07/20/19 15:45 Total Protein 7.1 g/dL (6.3-8.2) 07/20/19 05:33 Albumin 3.5 g/dL (3.9-5) L 07/20/19 05:33 Albumin/Globulin Ratio 1.0 % 07/20/19 05:33 Active Medications - Current Medications Current Medications: Generic Name Dose Route Start Last Admin Trade Name Freq PRN Reason Stop Dose Admin Acetaminophen 650 mg 07/19/19 20:09 Tylenol PO Q4H PRN Pain MILD(1-3)/Fever >100.5/LOPEZ Albuterol 2.5 mg 07/20/19 09:46 Proventil IH Q4HRT PRN Shortness Of Breath Albuterol/Ipratropium 1 ampul 07/20/19 14:00 07/22/19 01:41 Duoneb *Not For Prn Use* IH 1 ampul Q6HRT MARGARITA Administration Arformoterol Tartrate 15 mcg 07/20/19 20:00 07/21/19 19:33 Brovana Nebu IH 15 mcg Q12HRT MARGARITA Administration Benzonatate 100 mg 07/20/19 22:00 07/21/19 21:11 Tessalon Perles PO 100 mg Q8HR MARGARITA Administration Budesonide 0.5 mg 07/20/19 20:00 07/21/19 19:33 Pulmicort IH 0.5 mg Q12HRT MARGARITA Administration Enoxaparin Sodium 40 mg 07/19/19 22:00 07/21/19 21:11 Enoxaparin SUB-Q 40 mg QDAY@2200 MARGARITA Administration Hydromorphone HCl 0.5 mg 07/19/19 20:10 07/22/19 01:41 Dilaudid IV 0.5 mg Q3H PRN Administration Pain , Severe (7-10) Azithromycin 500 mg/ Sodium 250 mls @ 250 mls/hr 07/19/19 21:00 07/21/19 21:02 Chloride IV 250 mls/hr Q24H MARGARITA Administration Protocol Ceftriaxone Sodium 2 gm in 100 mls @ 200 mls/hr 07/19/19 22:00 07/21/19 22:30 Rocephin/Ns 2 Gm/100 Ml IV 200 mls/hr Q24H MARGARITA Administration Protocol Insulin Glargine 30 units 07/19/19 22:00 07/21/19 22:27 Lantus SUB-Q 30 units QHS MARGARITA Administration Insulin Human Lispro 0 unit 07/19/19 22:00 07/22/19 02:45 Humalog SUB-Q 4 unit Q4HR MARGARITA Administration Protocol Losartan Potassium 50 mg 07/19/19 22:00 07/21/19 09:08 Cozaar PO 50 mg QDAY MARGARITA Administration Ondansetron HCl 4 mg 07/19/19 20:09 Zofran IV Q8H PRN Nausea And Vomiting Oxycodone/Acetaminophen 1 tab 07/19/19 20:10 Percocet 5/325 PO Q6H PRN Pain, Moderate (4-6) Pseudoephedrine/Acetam/Chlorphenir 10 ml 07/20/19 18:08 07/21/19 21:01 Robitussin Ac PO 10 ml Q4H PRN Administration Cough Sodium Chloride 10 ml 07/19/19 22:00 07/21/19 21:12 Sodium Chloride Flush Syringe 10 Ml IV 10 ml BID MARGARITA Administration Sodium Chloride 10 ml 07/19/19 20:09 Sodium Chloride Flush Syringe 10 Ml IV PRN PRN LINE FLUSH Nutrition/Malnutrition Assess - Dietary Evaluation Nutrition/Malnutrition Findings: Nutrition Notes Start: 07/20/19 13:19 Freq: Status: Active Protocol: Document 07/20/19 13:19 RM (Rec: 07/20/19 13:40 RM [id number]) Nutrition Notes Need for Assessment generated from: MD Order Initial or Follow up Assessment Current Diagnosis Diabetes,Hypertension, Respiratory Failure Other Pertinent Diagnosis R lower lobe pneu, SIRS, Stage 2 Sacral PUs, Pickwickian syndrome Current Diet Cardiac/Consistent CHO Labs/Tests A1c 12.1 Pertinent Medications Reviewed Height 5 ft 2 in Weight 150.8 kg [place] Body Weight (kg) 50.00 BMI 60.7 Subjective/Other Information Consulted for DM diet education and screened for skin risk. Aquiles 9 points. Pt stated that her appetite is okay and that she eats all of her meals . Declined Yevgeniy d/t disliking the taste. Denied N/V. Pt stated that she had been previously educated but was not taught Carbohydrate Counting. Pt was falling asleep during beginning of education and requested education be rescheduled. Percent of energy/protein needs met: 100%/100% Burn Absent Trauma Absent Minimum of two criteria No #1 Nutrition Diagnosis Food and nutrition-related knowledge deficit Etiology previous inadequate diet education As Evidenced by Signs and Symptoms pt desire for education, A1c 12.1 Is patient on ventilator? No Is Patient Ambulatory and/or Out of Bed No REE-([facility]-confined to bed) 2506.392 Kcal/Kg value to use for calculation 13 Approximate Energy Requirements Using 1960 kcal/Kg Calculation Used for Recommendations Kcal/kg Additional Notes Protein Needs: 60-75g (1.2-1. 5g/kg IBW) Fluid Needs: 1 ml/kcal Nutrition Intervention Follow-Up By: 07/23/19 Additional Comments Follow for DM diet education
[2019-07-22] MEDS: BENZONATATE 100 MG CAP PO SCH ×3 (06:42→21:50)
[2019-07-22] MEDS: ARFORMOTEROL 15 MCG/2 ML NEBU IH SCH ×2 (07:56→20:42)
[2019-07-22] MEDS: BUDESONIDE 0.5 MG/2 ML NEBU IH SCH ×2 (07:56→20:42)
[2019-07-22] MEDS: LOSARTAN 50 MG TAB PO SCH (09:42)
--- NOTE | 2019-07-22 13:41 | Progress Note ---
Assessment and Plan 48 y/o morbidly obese female with SCARLET, OHS and noncompliance with therapy and chronic respiratory failure. 1. Done asking patient to wear PPV. RT to keep documenting refusal in the event something happens. 2. Would change patient to oral levaquin and treat for a total of 5 days including what time she has been an inpatient 3. No objection to discharge from a pulmonary standpoint given her noncompliance with therapy. Subjective Date of service: 07/22/19 Interval history: Despite pleading with the patient on yesterday. Continues to refuse PPV at night. Objective Vital Signs - 12hr 07/22/19 07/22/19 07/22/19 01:41 02:37 04:32 Temperature Pulse Rate 82 Pulse Rate [ 75 Bilateral Throughout] Respiratory 20 20 Rate Respiratory 18 Rate [Bilateral Throughout] Blood Pressure 152/82 O2 Sat by Pulse 81 L Oximetry 07/22/19 07/22/19 07/22/19 04:33 07:49 08:00 Temperature 98.1 F 98.1 F Pulse Rate 78 Pulse Rate [ 77 Bilateral Throughout] Respiratory 18 Rate Respiratory 18 Rate [Bilateral Throughout] Blood Pressure 145/90 O2 Sat by Pulse 98 Oximetry 07/22/19 07/22/19 09:42 10:00 Temperature Pulse Rate 78 74 Pulse Rate [ Bilateral Throughout] Respiratory Rate Respiratory Rate [Bilateral Throughout] Blood Pressure 145/90 O2 Sat by Pulse 98 Oximetry CBC and BMP: 07/20/19 05:33 07/20/19 05:33 Abnormal lab findings: Abnormal Labs 07/19/19 07/19/19 07/19/19 15:44 15:44 15:44 MCH RDW 17.6 H Lymph % (Auto) 4.6 L [place] % (Auto) Eos % (Auto) Lymph # 0.5 L Seg Neutrophils % 87.6 H Seg Neutrophils # 9.4 H Chloride 92.2 L Carbon Dioxide Glucose 469 H POC Glucose Hemoglobin A1c Lactic Acid 2.70 H* Calcium 8.1 L NT-Pro-B Natriuret Pep Albumin 07/19/19 07/19/19 07/19/19 15:44 16:30 18:25 MCH RDW Lymph % (Auto) [place] % (Auto) Eos % (Auto) Lymph # Seg Neutrophils % Seg Neutrophils # Chloride Carbon Dioxide Glucose POC Glucose 361 H Hemoglobin A1c 12.1 H Lactic Acid 2.70 H* Calcium NT-Pro-B Natriuret Pep Albumin 07/19/19 07/20/19 07/20/19 23:15 03:41 05:33 MCH 27 L RDW 17.2 H Lymph % (Auto) 13.1 L [place] % (Auto) 9.0 H Eos % (Auto) 5.3 H Lymph # 0.9 L Seg Neutrophils % 72.1 H Seg Neutrophils # Chloride Carbon Dioxide Glucose POC Glucose 386 H 254 H Hemoglobin A1c Lactic Acid Calcium NT-Pro-B Natriuret Pep Albumin 07/20/19 07/20/19 07/20/19 05:33 06:07 11:19 MCH RDW Lymph % (Auto) [place] % (Auto) Eos % (Auto) Lymph # Seg Neutrophils % Seg Neutrophils # Chloride Carbon Dioxide 31 H Glucose 257 H POC Glucose 245 H 302 H Hemoglobin A1c Lactic Acid Calcium 7.4 L NT-Pro-B Natriuret Pep Albumin 3.5 L 07/20/19 07/20/19 07/20/19 14:17 15:45 17:47 MCH RDW Lymph % (Auto) [place] % (Auto) Eos % (Auto) Lymph # Seg Neutrophils % Seg Neutrophils # Chloride Carbon Dioxide Glucose POC Glucose 287 H 341 H Hemoglobin A1c Lactic Acid Calcium NT-Pro-B Natriuret Pep 499.5 H Albumin 07/20/19 07/21/19 07/21/19 21:05 02:59 06:39 MCH RDW Lymph % (Auto) [place] % (Auto) Eos % (Auto) Lymph # Seg Neutrophils % Seg Neutrophils # Chloride Carbon Dioxide Glucose POC Glucose 347 H 231 H 198 H Hemoglobin A1c Lactic Acid Calcium NT-Pro-B Natriuret Pep Albumin 07/21/19 07/21/19 07/21/19 10:35 14:04 17:19 MCH RDW Lymph % (Auto) [place] % (Auto) Eos % (Auto) Lymph # Seg Neutrophils % Seg Neutrophils # Chloride Carbon Dioxide Glucose POC Glucose 314 H 301 H 289 H Hemoglobin A1c Lactic Acid Calcium NT-Pro-B Natriuret Pep Albumin 07/21/19 07/22/19 07/22/19 21:58 02:50 06:31 MCH RDW Lymph % (Auto) [place] % (Auto) Eos % (Auto) Lymph # Seg Neutrophils % Seg Neutrophils # Chloride Carbon Dioxide Glucose POC Glucose 257 H 264 H 214 H Hemoglobin A1c Lactic Acid Calcium NT-Pro-B Natriuret Pep Albumin 07/22/19 10:37 MCH RDW Lymph % (Auto) [place] % (Auto) Eos % (Auto) Lymph # Seg Neutrophils % Seg Neutrophils # Chloride Carbon Dioxide Glucose POC Glucose 302 H Hemoglobin A1c Lactic Acid Calcium NT-Pro-B Natriuret Pep Albumin
[2019-07-22] MEDS: guaiFENesin/CODEINE 100-10MG ORAL LIQD 5 ML PO PRN ×2 (16:04→23:58)
[2019-07-22] MEDS: cefTRIAXone/NS 2 GM/100 ML 2 GM/100 ML BAG IV SCH (21:49)
[2019-07-22] MEDS: AZITHROMYCIN 500 MG in SODIUM CHLORIDE 0.9% 250ML 250 ML IV SCH (21:50)
[2019-07-22] MEDS: INSULIN GLARGINE 100 UNITS/ML SUB-Q SCH (21:50)
[2019-07-22] MEDS: ENOXAPARIN 40 MG/0.4 ML INJ SUB-Q SCH (21:50)
[2019-07-23] MEDS: IPRATROPIUM/ALBUTEROL SULFATE 3 ML AMPUL.NEB IH SCH ×4 (01:23→20:35)
[2019-07-23] MEDS: INSULIN LISPRO 100 UNIT/ML SUB-Q SCH ×5 (02:10→20:34)
[2019-07-23] MEDS: BENZONATATE 100 MG CAP PO SCH ×2 (06:26→13:24)
[2019-07-23] MEDS: HYDROmorphone 1 MG/1 ML INJ IV PRN ×3 (06:29→13:25)
[2019-07-23] MEDS: BUDESONIDE 0.5 MG/2 ML NEBU IH SCH ×2 (07:36→20:35)
[2019-07-23] MEDS: ARFORMOTEROL 15 MCG/2 ML NEBU IH SCH ×2 (07:37→20:35)
--- NOTE | 2019-07-23 08:13 | Progress Note ---
Assessment and Plan Assessment and plan: Patient is a 48 yo woman with a history of morbidly obese as BMI at this time is 60.8, type 2 DM, hypertension and obstructive sleep apnea on CPAP at night who presents to [facility] ED with sob, cough and fevers. Blood glucose level was 572 when done by the EMS. pCXR showed Cardiomegaly and Right basilar pneumonia. Patient was hypoxic with Pulse ox of 87% on ER vital set, hence admission. She was also found to have excoriation, yeast type infection in perineal with stage 2 sacral pressure ulcers (see admission photos). Acute hypoxic hypercapneic respiratory failure requring O2 supplementation: treat the pneumonia Sepsis due to Pneumonia, poa: follow cultures, treat with abx RLL CAP pneumonia: treat with abx Morbid Obesity, bmi 60.8: monitor caloric intake Uncontrolled DM type 2 with hyperglycemia: treat with ssi, accuchecks, ada diet Sacral pressure ulcers stage 2: wound care consult Perineal Candiadiasis: keep dry and treat with local antifungal Suspected Pickwickian syndrome/ Chronic hypoventilation: CPAP/BiPAP at nighttime and daytime if necessary Hypertension: Continue losartan Noncompliance: counseling done DVT prophylaxis: Patient on Lovenox and GI prophylaxis full code Disposition: anticipate discharge History Interval history: Follow up COPD. Non compliant with wearing bipap at night, still hypercapneic, unable to treat effectively if she will not wear bipap, she will tonight Hospitalist Physical - Physical exam Narrative exam: Gen: morbid obese bmi 60.7 NAD, Awake, Alert, Orientated HEENT: NCAT, EOMI, PERRL, OP Clear Neck: supple, no adenopathy, no thyromegaly, no JVD CVS/Heart: RRR, normal S1S2, pulses present bilaterally Chest/Lungs: diminished with rhonchi, Symmetrical chest expansion, good air entry bilaterally GI/Abdomen: soft, NTND, good bowel sounds, no guarding or rebound /Bladder: no suprapubic tenderness, no CVA or paraspinal tenderness Extermity/Skin: obvious rashes, inner thigh, groin, buttock MSK: FROM x 4 Neuro: CN 2-12 grossly intact, no new focal deficits Psych: calm - Constitutional Vitals: Temp Pulse Resp BP Pulse Ox 98.0 F 76 18 187/98 98 07/22/19 23:23 07/23/19 02:00 07/23/19 02:00 07/22/19 23:23 07/22/19 23:23 General appearance: Present: no acute distress, well-nourished Results - Labs CBC & Chem 7: 07/20/19 05:33 07/20/19 05:33 Labs: Laboratory Last Values WBC 7.0 K/mm3 (4.5-11.0) 07/20/19 05:33 RBC 3.80 M/mm3 (3.65-5.03) 07/20/19 05:33 Hgb 10.4 gm/dl (10.1-14.3) 07/20/19 05:33 Hct 32.8 % (30.3-42.9) 07/20/19 05:33 MCV 86 fl (79-97) 07/20/19 05:33 MCH 27 pg (28-32) L 07/20/19 05:33 MCHC 32 % (30-34) 07/20/19 05:33 RDW 17.2 % (13.2-15.2) H 07/20/19 05:33 Plt Count 228 K/mm3 (140-440) 07/20/19 05:33 Lymph % (Auto) 13.1 % (13.4-35.0) L 07/20/19 05:33 [place] % (Auto) 9.0 % (0.0-7.3) H 07/20/19 05:33 Eos % (Auto) 5.3 % (0.0-4.3) H 07/20/19 05:33 Baso % (Auto) 0.5 % (0.0-1.8) 07/20/19 05:33 Lymph # 0.9 K/mm3 (1.2-5.4) L 07/20/19 05:33 [place] # 0.6 K/mm3 (0.0-0.8) 07/20/19 05:33 Eos # 0.4 K/mm3 (0.0-0.4) 07/20/19 05:33 Baso # 0.0 K/mm3 (0.0-0.1) 07/20/19 05:33 Seg Neutrophils % 72.1 % (40.0-70.0) H 07/20/19 05:33 Seg Neutrophils # 5.0 K/mm3 (1.8-7.7) 07/20/19 05:33 Sodium 141 mmol/L (137-145) 07/20/19 05:33 Potassium 4.1 mmol/L (3.6-5.0) 07/20/19 05:33 Chloride 99.2 mmol/L (98-107) 07/20/19 05:33 Carbon Dioxide 31 mmol/L (22-30) H 07/20/19 05:33 Anion Gap 15 mmol/L 07/20/19 05:33 BUN 14 mg/dL (7-17) 07/20/19 05:33 Creatinine 0.8 mg/dL (0.7-1.2) 07/20/19 05:33 Estimated GFR > 60 ml/min 07/20/19 05:33 BUN/Creatinine Ratio 18 % 07/20/19 05:33 Glucose 257 mg/dL (65-100) H 07/20/19 05:33 POC Glucose 240 (70-105) H 07/23/19 06:47 Hemoglobin A1c 12.1 % (4-6) H 07/19/19 15:44 Lactic Acid 1.90 mmol/L (0.7-2.0) 07/19/19 23:32 Calcium 7.4 mg/dL (8.4-10.2) L 07/20/19 05:33 Total Bilirubin 0.20 mg/dL (0.1-1.2) 07/20/19 05:33 AST 11 units/L (5-40) 07/20/19 05:33 ALT 10 units/L (7-56) 07/20/19 05:33 Alkaline Phosphatase 79 units/L (35-129) 07/20/19 05:33 NT-Pro-B Natriuret Pep 499.5 pg/mL (0-450) H 07/20/19 15:45 Total Protein 7.1 g/dL (6.3-8.2) 07/20/19 05:33 Albumin 3.5 g/dL (3.9-5) L 07/20/19 05:33 Albumin/Globulin Ratio 1.0 % 07/20/19 05:33 Active Medications - Current Medications Current Medications: Generic Name Dose Route Start Last Admin Trade Name Freq PRN Reason Stop Dose Admin Acetaminophen 650 mg 07/19/19 20:09 Tylenol PO Q4H PRN Pain MILD(1-3)/Fever >100.5/LOPEZ Albuterol 2.5 mg 07/20/19 09:46 Proventil IH Q4HRT PRN Shortness Of Breath Albuterol/Ipratropium 1 ampul 07/20/19 14:00 07/23/19 07:36 Duoneb *Not For Prn Use* IH 1 ampul Q6HRT MARGARITA Administration Arformoterol Tartrate 15 mcg 07/20/19 20:00 07/23/19 07:37 Brovana Nebu IH 15 mcg Q12HRT MARGARITA Administration Benzonatate 100 mg 07/20/19 22:00 07/23/19 06:26 Tessalon Perles PO 100 mg Q8HR MARGARITA Administration Budesonide 0.5 mg 07/20/19 20:00 07/23/19 07:36 Pulmicort IH 0.5 mg Q12HRT MARGARITA Administration Enoxaparin Sodium 40 mg 07/19/19 22:00 07/22/19 21:50 Enoxaparin SUB-Q 40 mg QDAY@2200 MARGARITA Administration Hydromorphone HCl 0.5 mg 07/19/19 20:10 07/23/19 06:29 Dilaudid IV 0.5 mg Q3H PRN Administration Pain , Severe (7-10) Azithromycin 500 mg/ Sodium 250 mls @ 250 mls/hr 07/19/19 21:00 07/22/19 21:50 Chloride IV 250 mls/hr Q24H MARGARITA Administration Protocol Ceftriaxone Sodium 2 gm in 100 mls @ 200 mls/hr 07/19/19 22:00 07/22/19 21:49 Rocephin/Ns 2 Gm/100 Ml IV 200 mls/hr Q24H MARGARITA Administration Protocol Insulin Glargine 30 units 07/19/19 22:00 07/22/19 21:50 Lantus SUB-Q 30 units QHS MARGARITA Administration Insulin Human Lispro 0 unit 07/19/19 22:00 07/23/19 06:42 Humalog SUB-Q 3 unit Q4HR MARGARITA Administration Protocol Losartan Potassium 50 mg 07/19/19 22:00 07/22/19 09:42 Cozaar PO 50 mg QDAY MARGARITA Administration Ondansetron HCl 4 mg 07/19/19 20:09 Zofran IV Q8H PRN Nausea And Vomiting Oxycodone/Acetaminophen 1 tab 07/19/19 20:10 Percocet 5/325 PO Q6H PRN Pain, Moderate (4-6) Pseudoephedrine/Acetam/Chlorphenir 10 ml 07/20/19 18:08 07/22/19 23:58 Robitussin Ac PO 10 ml Q4H PRN Administration Cough Sodium Chloride 10 ml 07/19/19 22:00 07/22/19 21:51 Sodium Chloride Flush Syringe 10 Ml IV 10 ml BID MARGARITA Administration Sodium Chloride 10 ml 07/19/19 20:09 Sodium Chloride Flush Syringe 10 Ml IV PRN PRN LINE FLUSH Nutrition/Malnutrition Assess - Dietary Evaluation Nutrition/Malnutrition Findings: Nutrition Notes Start: 07/20/19 13:19 Freq: Status: Active Protocol: Document 07/20/19 13:19 RM (Rec: 07/20/19 13:40 RM [id number]) Nutrition Notes Need for Assessment generated from: MD Order Initial or Follow up Assessment Current Diagnosis Diabetes,Hypertension, Respiratory Failure Other Pertinent Diagnosis R lower lobe pneu, SIRS, Stage 2 Sacral PUs, Pickwickian syndrome Current Diet Cardiac/Consistent CHO Labs/Tests A1c 12.1 Pertinent Medications Reviewed Height 5 ft 2 in Weight 150.8 kg Stacy Body Weight (kg) 50.00 BMI 60.7 Subjective/Other Information Consulted for DM diet education and screened for skin risk. Aquiles 9 points. Pt stated that her appetite is okay and that she eats all of her meals . Declined Yevgeniy d/t disliking the taste. Denied N/V. Pt stated that she had been previously educated but was not taught Carbohydrate Counting. Pt was falling asleep during beginning of education and requested education be rescheduled. Percent of energy/protein needs met: 100%/100% Burn Absent Trauma Absent Minimum of two criteria No #1 Nutrition Diagnosis Food and nutrition-related knowledge deficit Etiology previous inadequate diet education As Evidenced by Signs and Symptoms pt desire for education, A1c 12.1 Is patient on ventilator? No Is Patient Ambulatory and/or Out of Bed No REE-([facility]-confined to bed) 2506.392 Kcal/Kg value to use for calculation 13 Approximate Energy Requirements Using 1960 kcal/Kg Calculation Used for Recommendations Kcal/kg Additional Notes Protein Needs: 60-75g (1.2-1. 5g/kg IBW) Fluid Needs: 1 ml/kcal Nutrition Intervention Follow-Up By: 07/23/19 Additional Comments Follow for DM diet education
[2019-07-23] MEDS: LOSARTAN 50 MG TAB PO SCH (10:02)
--- NOTE | 2019-07-23 12:36 | Progress Note ---
Assessment and Plan 48 y/o morbidly obese female with SCARLET, OHS and noncompliance with therapy and chronic respiratory failure. No new recs for today. Please see below. 1. Done asking patient to wear PPV. RT to keep documenting refusal in the event something happens. 2. Would change patient to oral levaquin and treat for a total of 5 days including what time she has been an inpatient 3. No objection to discharge from a pulmonary standpoint given her noncompliance with therapy. Subjective Date of service: 07/23/19 Interval history: Patient continues to refuse nightly PPV therapy. Awake and eating food in the bed. States that she is going home. Objective Vital Signs - 12hr 07/23/19 07/23/19 07/23/19 02:00 07:40 08:36 Temperature 98.4 F Pulse Rate 76 84 Pulse Rate [ 84 Bilateral Throughout] Respiratory 18 20 Rate Respiratory 20 Rate [Bilateral Throughout] Blood Pressure 153/87 O2 Sat by Pulse 92 Oximetry 07/23/19 07/23/19 07/23/19 09:32 10:00 10:02 Temperature Pulse Rate 75 84 Pulse Rate [ Bilateral Throughout] Respiratory Rate Respiratory Rate [Bilateral Throughout] Blood Pressure 153/87 O2 Sat by Pulse 97 Oximetry CBC and BMP: 07/20/19 05:33 07/20/19 05:33 Abnormal lab findings: Abnormal Labs 07/19/19 07/19/19 07/19/19 15:44 15:44 15:44 MCH RDW 17.6 H Lymph % (Auto) 4.6 L [place] % (Auto) Eos % (Auto) Lymph # 0.5 L Seg Neutrophils % 87.6 H Seg Neutrophils # 9.4 H Chloride 92.2 L Carbon Dioxide Glucose 469 H POC Glucose Hemoglobin A1c Lactic Acid 2.70 H* Calcium 8.1 L NT-Pro-B Natriuret Pep Albumin 07/19/19 07/19/19 07/19/19 15:44 16:30 18:25 MCH RDW Lymph % (Auto) [place] % (Auto) Eos % (Auto) Lymph # Seg Neutrophils % Seg Neutrophils # Chloride Carbon Dioxide Glucose POC Glucose 361 H Hemoglobin A1c 12.1 H Lactic Acid 2.70 H* Calcium NT-Pro-B Natriuret Pep Albumin 07/19/19 07/20/19 07/20/19 23:15 03:41 05:33 MCH 27 L RDW 17.2 H Lymph % (Auto) 13.1 L [place] % (Auto) 9.0 H Eos % (Auto) 5.3 H Lymph # 0.9 L Seg Neutrophils % 72.1 H Seg Neutrophils # Chloride Carbon Dioxide Glucose POC Glucose 386 H 254 H Hemoglobin A1c Lactic Acid Calcium NT-Pro-B Natriuret Pep Albumin 07/20/19 07/20/19 07/20/19 05:33 06:07 11:19 MCH RDW Lymph % (Auto) [place] % (Auto) Eos % (Auto) Lymph # Seg Neutrophils % Seg Neutrophils # Chloride Carbon Dioxide 31 H Glucose 257 H POC Glucose 245 H 302 H Hemoglobin A1c Lactic Acid Calcium 7.4 L NT-Pro-B Natriuret Pep Albumin 3.5 L 07/20/19 07/20/19 07/20/19 14:17 15:45 17:47 MCH RDW Lymph % (Auto) [place] % (Auto) Eos % (Auto) Lymph # Seg Neutrophils % Seg Neutrophils # Chloride Carbon Dioxide Glucose POC Glucose 287 H 341 H Hemoglobin A1c Lactic Acid Calcium NT-Pro-B Natriuret Pep 499.5 H Albumin 07/20/19 07/21/19 07/21/19 21:05 02:59 06:39 MCH RDW Lymph % (Auto) [place] % (Auto) Eos % (Auto) Lymph # Seg Neutrophils % Seg Neutrophils # Chloride Carbon Dioxide Glucose POC Glucose 347 H 231 H 198 H Hemoglobin A1c Lactic Acid Calcium NT-Pro-B Natriuret Pep Albumin 07/21/19 07/21/19 07/21/19 10:35 14:04 17:19 MCH RDW Lymph % (Auto) [place] % (Auto) Eos % (Auto) Lymph # Seg Neutrophils % Seg Neutrophils # Chloride Carbon Dioxide Glucose POC Glucose 314 H 301 H 289 H Hemoglobin A1c Lactic Acid Calcium NT-Pro-B Natriuret Pep Albumin 07/21/19 07/22/19 07/22/19 21:58 02:50 06:31 MCH RDW Lymph % (Auto) [place] % (Auto) Eos % (Auto) Lymph # Seg Neutrophils % Seg Neutrophils # Chloride Carbon Dioxide Glucose POC Glucose 257 H 264 H 214 H Hemoglobin A1c Lactic Acid Calcium NT-Pro-B Natriuret Pep Albumin 07/22/19 07/22/19 07/22/19 10:37 14:40 17:41 MCH RDW Lymph % (Auto) [place] % (Auto) Eos % (Auto) Lymph # Seg Neutrophils % Seg Neutrophils # Chloride Carbon Dioxide Glucose POC Glucose 302 H 322 H 320 H Hemoglobin A1c Lactic Acid Calcium NT-Pro-B Natriuret Pep Albumin 07/22/19 07/23/19 07/23/19 21:36 06:47 08:47 MCH RDW Lymph % (Auto) [place] % (Auto) Eos % (Auto) Lymph # Seg Neutrophils % Seg Neutrophils # Chloride Carbon Dioxide Glucose POC Glucose 222 H 240 H 285 H Hemoglobin A1c Lactic Acid Calcium NT-Pro-B Natriuret Pep Albumin
--- NOTE | 2019-07-23 12:48 | Discharge Summary ---
Providers - Providers Date of Admission: 07/19/19 18:44 Date of discharge: 07/23/19 Attending physician: ADRIANA PATEL 07/19/19 Consult to Case Management [CONS] Routine Services Needed at Discharge: Home Health Services Notified:: case coordinator 07/19/19 16:02 Consult to PICC Line RN [CONS] Stat Reason For Exam: Difficult access Type Line:: Midline 07/19/19 20:10 Consult to Dietitian/Nutrition [CONS] Routine Physician Instructions: Reason For Exam: Reason for Consult: Diet education 07/19/19 20:37 Consult to Physician [CONS] Routine Comment: Consulting Provider: TJ CORONADO Physician Instructions: Reason For Exam: obstructive sleep apnea 07/20/19 01:38 Consult to Wound/ET Nurse [CONS] Routine Reason For Exam: wound eval Primary care physician: RISK ASSESSOR Hospitalization Condition: Stable Hospital course: Patient is a 48 yo woman with a history of morbidly obese as BMI at this time is 60.8, type 2 DM, chronic hypoxic respiratory failure on home o2, hypertension and obstructive sleep apnea on CPAP at night who presents to [facility] ED with sob, cough and fevers. Blood glucose level was 572 when done by the EMS. pCXR showed Cardiomegaly and Right basilar pneumonia. Patient was hypoxic with Pulse ox of 87% on ER vital set, hence admission. She was also found to have excoriation, yeast type infection in perineal with stage 2 sacral pressure ulcers (see admission photos). Discharge Diagnoses: Acute on chronic hypoxic hypercapneic respiratory failure, poa requring O2 supplementation: treat the pneumonia Sepsis due to Pneumonia, poa: follow cultures, treat with abx RLL CAP pneumonia: treat with abx Functional quadriplegic for years/bedbound state: food counselor on preventing pressure ulcers Morbid Obesity, bmi 60.8: monitor caloric intake Uncontrolled DM type 2 with hyperglycemia: treat with ssi, accuchecks, ada diet Sacral pressure ulcers stage 2: wound care consult Skin/groin Candiasis: keep dry and treat with local antifungal Suspected Pickwickian syndrome/ Chronic hypoventilation: CPAP/BiPAP at nighttime and daytime if necessary Hypertension: Continue losartan Noncompliance: counseling done She is asking for narcotic, she has pain medication doctor, Dr. Guerrero [place] registered respiratory technician aware reviewed Disposition: - TO HOME OR SELFCARE Time spent for discharge: 35 minutes Core Measure Documentation - Palliative Care Palliative Care/ Comfort Measures: Not Applicable - Core Measures Any of the following diagnoses?: none - VTE Discharge Requirements Deep Vein Thrombosis/Pulmonary Embolism Present on Admission: No Has pt received <5 days of overlap therapy or INR<2.0: No Anticoagulant overlap therapy prescribed at discharge: No Contraindication No Overlap Therapy order at DC: Not Indicated Exam - Physical Exam Narrative exam: Gen: morbid obese bmi 60.7 NAD, Awake, Alert, Orientated HEENT: NCAT, EOMI, PERRL, OP Clear Neck: supple, no adenopathy, no thyromegaly, no JVD CVS/Heart: RRR, normal S1S2, pulses present bilaterally Chest/Lungs: diminished with rhonchi, Symmetrical chest expansion, good air entry bilaterally GI/Abdomen: soft, NTND, good bowel sounds, no guarding or rebound /Bladder: no suprapubic tenderness, no CVA or paraspinal tenderness Extermity/Skin: obvious rashes, inner thigh, groin, buttock MSK: FROM x 4 Neuro: CN 2-12 grossly intact, no new focal deficits Psych: calm - Constitutional Vitals: Temp Pulse Resp BP Pulse Ox 98.4 F 84 20 153/87 97 07/23/19 08:36 07/23/19 10:02 07/23/19 08:36 07/23/19 10:02 07/23/19 09:32 Plan Activity: other (no strenous activity unless cleared by PCP) Diet: low cholesterol, low salt, diabetic Special Instructions: record daily weights, record daily BP diary, record blood sugar diary Follow up with: PRIMARY MD BHARGAVI [Primary Care Provider] - 3-5 Days DONALD TRIVEDI MD [Staff Physician] - 7 Days Prescriptions: Arformoterol Nebu [Brovana Nebu] 15 mcg IH Q12HRT 30 Days #30 ml Losartan [Cozaar] 50 mg PO QDAY #30 tablet Ipratropium/Albuterol Sulfate [DUONEB *Not for PRN Use*] 1 ampul IH Q4H PRN #30 ampul.neb PRN Reason: Shortness Of Breath levoFLOXacin [Levaquin] 750 mg PO QDAY #5 tablet methylPREDNISolone [Medrol 4MG DOSEPAK (21 tabs)] 1 dose PO DAILY #1 tab.ds.pk Oxycodone HCl/Acetaminophen [Percocet 10/325 mg] 1 each PO Q6HR PRN #30 tablet PRN Reason: Pain , Severe (7-10) ALBUTEROL NEB's [Proventil 0.083% NEBS] 2.5 mg IH Q4HRT PRN #30 nebu PRN Reason: Shortness Of Breath Budesonide [Pulmicort Respules] 0.5 mg IH Q12HRT #30 nebu guaiFENesin/CODEINE [Robitussin AC] 10 ml PO Q4H PRN 5 Days #30 oral.liqd PRN Reason: Cough Benzonatate [Tessalon Perles] 100 mg PO Q8HR 5 Days #15 capsule
[2019-07-23 16:44] VITALS: BP 147/85
== END 2019-07-23 17:10 | disposition home or self-care (01) | DRG 871 ==
LOC: ED 13:57 → 4A 18:44
PROVIDERS: ADMIT Internal Medicine; ATTEND Internal Medicine
DX: A41.9 Sepsis, unspecified organism (principal); J96.21 Acute and chronic respiratory failure with hypoxia; J96.22 Acute and chronic respiratory failure with hypercapnia; J18.9 Pneumonia, unspecified organism; R53.2 Functional quadriplegia; E66.2 Morbid (severe) obesity with alveolar hypoventilation; Z68.44 Body mass index [BMI] 60.0-69.9, adult; E11.65 Type 2 diabetes mellitus with hyperglycemia; L89.152 Pressure ulcer of sacral region, stage 2; I10 Essential (primary) hypertension; B37.2 Candidiasis of skin and nail; J44.9 Chronic obstructive pulmonary disease, unspecified; Z99.81 Dependence on supplemental oxygen; Z74.01 Bed confinement status; Z91.14 Patient's other noncompliance with medication regimen; Z71.9 Counseling, unspecified; Z82.49 Family history of ischemic heart disease and other diseases of the circulatory system
CPT/HCPCS: 36415; 71045; 80053; 82140; 82962; 83036; 83880; 85025; 87040; 87116; 94640; 94760; 96365; G0378; J0456; J0696; J1170; J1650; J1815; J1940; J2270; J2405; J2543; J7030; J7050